=== PATIENT | female | born 1935 | race Caucasian/White ===

== ENCOUNTER → 2018-08-08 | Outpatient (CLI) | payer MEDICARE, OTHER ==
--- NOTE | 2018-08-20 15:08 | PATH ---
[address] [address] PATHOLOGY RPT PROCEDURE Name: FRANCY ALEJANDRA [id number] Admission: 08/08/18 Date of : 33 Discharge: Report #: [id number] Path Case #: [id number] [facility] Accession Number: [id number] . 01 Material submitted: . RIGHT BREAST BIOPSY . 01 Clinical history: . 2.7 x 2.3 x 1.3 cm mass . 02 Diagnosis: Breast, right, biopsy: - Invasive lobular carcinoma. - Lobular carcinoma in situ. - See comment. (MAP:[facility]; 08/13/2018) QMS/08/13/2018 . 02 Comment: Immunohistochemical stains performed on block 2 are as follows: - E-cadherin - lost expression among tumor cells. - AE1/AE3 - Highlights tumor cells. . . Specimen type: Breast biopsy Laterality: Right Site: Not specified Tumor Type: Invasive lobular carcinoma Tubules, Nuclei, Mitotic Figures: 3, 2, 1 Histologic Grade: Grade 2, moderately differentiated Tumor size: Measures up to 1.4 cm on slide In Situ Carcinoma: Lobular carcinoma in situ present LVSI: Not identified Perineural Invasion: Not identified . A prognostic report will be performed and reported as an addendum. . These findings are discussed with Tosha at Dr. Almonte's office on 08/13/2018 at 1:32 PM. . Co-review: Dr. Greenfield . (MAP:[facility]; 08/13/2018) . 02 Addendum: . Special studies report received from [facility], [address] [place] [address], [address], [place], [address], on case [id number], labeled with their number [id number], dated 08/17/2018. [place] [address] PATHOLOGY RPT PROCEDURE Name: FRANCY ALEJANDRA Room: [facility]#: [id number] Admission: 08/08/18 Date of : 33 Discharge: Report #: [id number] Path Case #: [id number] . Breast/Prognostic Marker Analysis . Specimen Site: Rt Breast,Breast Cancer (biopsy) Specimen ID #: [id number] . ER (Estrogen Receptor) Present/Positive Percent: 95.00% Analysis: Manual Comments: Staining intensity: Strong . [place] (Progesterone Receptor) Present/Positive Percent: 50.00% Analysis: Manual Comments: Staining intensity: Moderate . HER2 Not Over-Expressed Score: 0 Analysis: Manual . Ki-67 Low Proliferation Percent: 10.00% Analysis: Manual . Time to Fixation (Cold Ischemic Time): 5 minutes Duration of Fixation: 32 hours 30 minutes Type of Fixative: 10% Neutral Buffered Formalin . at [facility]. Areli Dodge M.D. Pathologist . . . Methodology The HER2 Receptor protein expression is analyzed using the Ollie HER2 rabbit monoclonal antibody (clone 4B5). This assay is used for diagnostic determination of the HER2 protein over-expression in paraffin embedded, formalin fixed breast cancer tissue on the [employer] Benchmark. The specimen is processed using a polymer detection system. The membrane staining of the tumor is determined either by manual score or image analysis. This antibody is intended for in vitro diagnostic use. The score is reported as per package insert; 0, 1+, 2+, and 3+. This test [place] [address] PATHOLOGY RPT PROCEDURE Name: FRANCY ALEJANDRA Room: [facility]#: [id number] Admission: 08/08/18 Date of : 33 Discharge: Report #: [id number] Path Case #: [id number] . A rabbit monoclonal antibody (clone SP1) that recognized the Estrogen Receptor is used to perform immunohistochemistry on routinely fixed (formalin) paraffin embedded tissue on the Ollie Benchmark. The specimen is processed using a polymer detection system. The percentage of stained tumor nuclei is determined either manually or by image analysis. This test is intended for in vitro diagnostic use. This test is used for clinical purposes. . A rabbit monoclonal antibody (clone 1E2) that recognized the Progesterone Receptor is used to perform immunohistochemistry on routinely fixed (formalin) paraffin embedded tissue on the Ollie Benchmark. The specimen is processed using a polymer detection system. The percentage of stained tumor nuclei is determined either manually or by image analysis. This test is intended for in vitro diagnostic use. This test is used for clinical purposes. . A rabbit monoclonal antibody (clone 30-9) that recognized Ki67 is used to perform immunohistochemistry on routinely fixed (formalin) paraffin embedded tissue on the Ollie Benchmark. The specimen is processed using a polymer detection system. The percentage of stained tumor nuclei is determined either manually or by image analysis. This test is intended for in vitro diagnostic use. This test is used for clinical purposes. . Intended Use: This antibody is intended for in vitro diagnostic (IVD) use. HER2 (4B5) is a rabbit monoclonal antibody intended for the semi-quantitative detection of HER2 antigen in sections of formalin-fixed, paraffin embedded normal and neoplastic tissue. . This antibody is intended for in vitro diagnostic (IVD) use. Estrogen Receptor (ER) (SP1) is a rabbit monoclonal antibody (IgG) that is intended for the qualitative detection of estrogen receptor (ER) antigen in sections of formalin-fixed, paraffin-embedded tissue. ER is a rabbit monoclonal antibody that recognizes human estrogen receptor alpha. . This antibody is intended for in vitro diagnostic (IVD) use. Progesterone Receptor (KY) (1E2) is a rabbit monoclonal antibody (IgG) that is intended for the qualitative detection of progesterone receptor (KY) antigen in sections of formalin fixed, paraffin embedded tissue. KY is a rabbit monoclonal antibody that recognizes the A and B forms of the human progesterone receptor. . This antibody is intended for in vitro diagnostic (IVD) use. Ki-67 (30-9) is a rabbit monoclonal antibody (IgG) directed against C-terminal portion of Ki-67 antigen. Staining for Ki-67 can be used to aid in assessing the proliferative activity of normal and neoplastic tissue. Ki-67 is a nuclear protein expressed in proliferating cells. During the cell cycle, the Ki-67 antigen is present in the G1, S, G2 and M phase but is [place] [address] PATHOLOGY RPT PROCEDURE Name: FRANCY ALEJANDRA Room: [facility].#: [id number] Admission: 08/08/18 Date of : 33 Discharge: Report #: [id number] Path Case #: [id number] (quiescent phase). . . Disclaimer This Test was performed by [facility] [employer] at [address] [place] [address], [facility]. . [facility] is a business unit of [facility] [employer] a wholly-owned subsidiary of [employer]. . This assay has not been validated on decalcified tissues. Results should be interpreted with caution if this specimen was decalcified given the likelihood of false negativity on decalcified specimens. . Any image(s) that accompany this report is/are a patient access representative image(s) only and should not be used to render a diagnosis. . This interpretation is contingent on the specimen and the clinical information received. . For any special tests/stains performed, known positive cells or tissues are tested with each marker and examined to ensure positivity. Positive and negative internal controls, if present, react appropriately. . This analysis is an adjunct to the evaluation of the referring physician and does not represent a final diagnosis. . The immunohistochemistry tests performed at [facility] [employer] were validated on tissue fixed in 10% neutral buffered formalin. The performance characteristics of the tests performed on tissue processed in other fixatives is not known. . HER2 testing at [facility] [employer] is performed in compliance with the 2013 updated ASCO/CAP Clinical Practice Guidelines and Recommendations for HER2 testing in Breast Cancer. If the result is EQUIVOCAL (2+), it must be confirmed by an alternative assay such as FISH or Dual LOBO. REF: Barry BYRNE, et al. Recommendations for human epidermal growth factor receptor 2 testing in breast cancer: [place] Society of Clinical Oncology/College of [place] pathologists Clinical Practice Guideline Update. J Clin Oncol. 2013 Aug 23;31(31):5724-6597. . HER2 and ER/KY ASCO/CAP guidelines require fixation in neutral buffered formalin for a minimum of 6 and a maximum of 72 hours. Fixation times less than 6 hours may not adequately preserve cell proteins. Fixation times longer than 72 hours may cause excess cross-linking of proteins reducing the antigen available for staining. Either scenario can cause reduced staining; hence false negative results are possible and should be considered for these situations if the HER2 IHC score is less than 3+ [place] [address] PATHOLOGY RPT PROCEDURE Name: FRANCY ALEJANDRA Room: [facility] LYUBOV Bazzi#: [id number] Admission: 08/08/18 Date of : 33 Discharge: Report #: [id number] Path Case #: [id number] ER or KY is negative (no staining or <1% positive). It is recommended that specimens fixed longer than 72 hours with HER2 IHC scores less than 3+ be confirmed by HER2 FISH or Dual LOBO. The time from biopsy/excision to fixation in formalin (cold ischemic time) must be less than 1 hour. Time to fixation (cold ischemic time) greater than 1 hour should be interpreted with caution. HER2 testing, mainly HER2 by FISH, is particularly vulnerable since excessive cold ischemic time results in preferential loss of HER2 probe signals that may lead to false negative results. . SCORE STAINING PATTERN IN TUMOR CELLS INTERPRETATION RESULTS 0 No staining observed or incomplete, faint membrane staining in less than or equal to 10% of tumor cells. Negative 1+ Incomplete, faint membrane staining in greater than 10% of tumor cells. Negative 2+ Incomplete and/or weak/moderate circumferential membrane staining in greater than 10% of the invasive tumor cells or complete, circumferential, intense alternative assay staining in less than or equal to 10% of invasive tumor cells. Equivocal* *Must be confirmed by alternative assay (IHC/FISH/Dual LOBO) 3+ Intense, complete membrane staining in greater than 10% of tumor cells. Positive . A complete copy of the report is on file. . Professional and Technical services performed by [facility]. at [address], [address] [address]. . ([facility] 08/20/2018) . [facility]/08/20/2018 Addendum Electronically Signed by Mitlon Hyman M.D. . 02 Electronically signed: . Milton Hyman MD, Pathologist NPI- [id number] . 01 Gross description: . Received in formalin labeled "Francy Alejandra, right breast BX 5:00, 6 cmfn," are multiple needle cores of yellow-king fibrofatty tissue measuring 2.8 x 3.7 x 0.8 cm in aggregate dimensions. The tissue submitted in its entirety in cassette A1 through A3. The cold ischemic time is 5 minutes. The total formalin fixation time is 32 hours and 30 [place] [address] PATHOLOGY RPT PROCEDURE Name: FRANCY ALEJANDRA Room: [facility]#: [id number] Admission: 08/08/18 Date of : 33 Discharge: Report #: [id number] Path Case #: [id number] minutes. (TSD; 08/08/2018) TOB/TOB . 02 Pathologist provided ICD-10: C50.911, D05.01 . 02 CPT . 234947, A67421, P25339 Specimen Comment: A courtesy copy of this report has been sent to Specimen Comment: [phone]. Specimen Comment: Report sent to Specimen Comment: A duplicate report has been generated due to demographic updates. Performed at: 01 [facility] [address] [id number] MD Alexandre Osuna MD Phone: [phone] Performed at: 02 [facility] [address] [id number] MD Jayashree Kinney MD Phone: [phone]
== END | disposition home or self-care (01) ==
LOC: M.ULTRA 07:46
DX: C50.911 Malignant neoplasm of unspecified site of right female breast (principal); R92.1 Mammographic calcification found on diagnostic imaging of breast